=== PATIENT | male | born 1980 | race Hispanic/Latino ===

== ENCOUNTER 2021-07-19 23:56 | Emergency (ER) | payer OTHER ==
[~2021-07-19] VITALS: Ht 167.6 cm; Wt 90.7 kg
[2021-07-20] MEDS ORDERED: LIDOCAINE HCL 2% VISCOUS 15 ML UDCUP PO ONE (01:30)
[2021-07-20] MEDS ORDERED: TRANEXAMIC ACID 1000MG/10ML TP ONE (01:30)
[2021-07-20] MEDS ORDERED: OXYMETAZOLINE HCL SPRAY 15 ML BOTTLE EN SCH (01:30)
[2021-07-20] MEDS ORDERED: CEFTRIAXONE 1G VIAL IVP ONE (01:30)
[2021-07-20] MEDS ORDERED: ONDANSETRON 4MG INJ IVP ONE ×2 (01:30→03:30)
[2021-07-20] MEDS ORDERED: MAG/ALUM/SIMETH 30 ML UDCUP PO ONE (01:30)
[2021-07-20] MEDS ORDERED: 0.9%NACL 1000ML 1,000 ML IV ONE (01:30)
[2021-07-20 01:38] LABS: BASOPHILS % (AUTO) 0.2 % (0.0-5.0); EOSINOPHILS % (AUTO) 0.8 % (0.0-8.0); HEMATOCRIT 43.3 % (42-54); LYMPHOCYTES % (AUTO) 18.7 % (21.0-51.0); MEAN CORPUSCULAR HEMOGLOBIN 29.2 pg (27.0-33.0); MEAN CORPUSCULAR HGB CONC 33.7 g/dL (32.0-36.0); MEAN CORPUSCULAR VOLUME 86.6 fL (79-99); MONOCYTES % (AUTO) 6.9 % (3.0-13.0); NEUTROPHILS % (AUTO) 72.9 % (40.0-77.0); PLATELET COUNT (AUTO) 244 K/uL (130-400); RED CELL DISTRIBUTION WIDTH 13.1 % (11.0-15.5); WHITE BLOOD COUNT (AUTO) 13.1 K/uL (4.8-10.8)
[2021-07-20 01:48] LABS: CREATININE 0.9 mg/dL (0.5-1.5); POTASSIUM 3.3 mmol/L (3.5-5.1)
[2021-07-20] MEDS ORDERED: MORPHINE 2 MG SYG IVP ONE (03:30)
[2021-07-20] MEDS ORDERED: ONDA4TAB10 PO (03:32)
[2021-07-20] MEDS ORDERED: CEPH500B PO (03:32)
[2021-07-20 04:05] VITALS: BP 139/73
== END 2021-07-20 04:06 | disposition home or self-care (01) ==
LOC: EDH 23:56
DX: R04.0 Epistaxis (principal); E86.9 Volume depletion, unspecified; I10 Essential (primary) hypertension; F41.9 Anxiety disorder, unspecified; F32.A Depression, unspecified; Z88.0 Allergy status to penicillin
CPT/HCPCS: 36415; 80048; 85025; 96361; 96374; 96375; 96376; 99284; J0696; J2405 ×2; J7030